=== PATIENT | female | born 1955 | race Caucasian/White ===

== ENCOUNTER 2016-06-07 18:28 | Emergency (ER) | payer MEDICARE, MEDICAID ==
[2016-06-07] MEDS ORDERED: DUONEB INH ONE (22:40)
[2016-06-07] MEDS ORDERED: GUAIFEN/DM 10 ML UDC ONE (23:20)
[2016-06-07] MEDS ORDERED: KETOROLAC 60 MG/2 ML VIAL IM ONE (23:20)
== END 2016-06-08 00:07 | disposition home or self-care (01) ==
LOC: ER 18:28
DX: J15.9 Unspecified bacterial pneumonia (principal); F17.210 Nicotine dependence, cigarettes, uncomplicated
CPT/HCPCS: 36415; 71020; 80053; 83880; 85025; 87804; 87880; 93005; 94640; 96372